=== PATIENT | male | born 1945 | race Caucasian/White ===

== ENCOUNTER 2018-04-30 13:55 | Emergency (ER) | payer MEDICARE, OTHER ==
--- NOTE | 2018-04-30 14:29 | ER Document Report ---
ED Animal Bite - General Chief Complaint: Snake Bite Stated Complaint: FINGER INJURY Time Seen by Provider: 04/30/18 14:17 Mode of Arrival: Ambulatory Information source: Patient Notes: Patient presents to the ED s/p bite to L middle finger. Patient was pulling víctor mili when felt something sharp to the L middle finger. He felt like something "latched onto the finger." He says there's a lot of snakes in the area and is unsure if he was bit by a snake or a spider. Finger began bleeding, bruising and swelling. 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 TRAVEL OUTSIDE OF THE [place] IN LAST 30 DAYS: No - HPI Patient complains to provider of: Bite to L middle finger Location of injury: LUE - Left middle finger Onset: Just prior to arrival Quality of pain: Achy, Fullness Pain Level: 1 Context of attack: "Unprovoked" attack Type of animal: snake vs spider Appearance of animal: Unknown - Related Data Allergies/Adverse Reactions: Tetanus Vaccines and Toxoid Allergy (Verified 04/30/18 14:01) Past Medical History - General Information source: Patient, [facility] Records - Social History Smoking Status: Current Every Day Smoker Cigarette use (# per day): Yes Family History: Reviewed & Not Pertinent Review of Systems - Review of Systems Constitutional: No symptoms reported EENT: No symptoms reported Cardiovascular: No symptoms reported Respiratory: No symptoms reported Gastrointestinal: No symptoms reported Genitourinary: No symptoms reported Musculoskeletal: Joint pain Skin: Change in color Hematologic/Lymphatic: No symptoms reported Neurological/Psychological: No symptoms reported Physical Exam - Vital signs Vitals: Temp Pulse Resp BP Pulse Ox 98.6 F 93 20 144/86 H 93 04/30/18 14:05 04/30/18 14:05 04/30/18 14:05 04/30/18 14:05 04/30/18 14:05 Interpretation: Normal - General General appearance: Appears well, Alert In distress: None - HEENT Head: Normocephalic, Atraumatic Eyes: Normal Conjunctiva: Normal Cornea: Normal Extraocular movements intact: Yes Pupils: PERRL - Respiratory Respiratory status: No respiratory distress Chest status: Nontender Breath sounds: Normal Chest palpation: Normal - Cardiovascular Rhythm: Regular Heart sounds: Normal auscultation - Abdominal Inspection: Normal Distension: No distension - Extremities General upper extremity: Edema Hand: Ecchymosis - L hand middle finger swelling and ecchymosis to the distal tip of the finger. - Neurological Neuro grossly intact: Yes Cranial nerves: Normal - Psychological Associated symptoms: Normal affect, Normal mood - Skin Skin Color: Ecchymosis - Ecchymosis to the L middle finger distal tip of the finger. Edema to the L middle finger. Course - Re-evaluation Re-evalutation: 04/30/18 14:[address] Cardenas in Triage. Labs and imaging ordered. Poison control consulted for possible snake bite. Recommended holding CroFab at this time. If finger starts to become dusky, increasing in swelling, increasing in pain then to administer. 04/30/18 14:46 04/30/18 17:46 Patient's lab obtained and are WNL. On re-evaluation, patient's finger is improving. Erythema, swelling are decreasing. I contacted poison control. They would like the patient to be monitored for 6 hours. They would like measurements to be done on the LUE over the next 6 hours to tract the swelling progression. The paperwork on how to do this was faxed. I reviewed this with the nurse. She will take the measurements as described in the fax. I discussed the plan of care with the patient. He's agreeable with monitoring for 6 hours. 04/30/18 18:36 Care has been given to Dr. Staples. - Vital Signs Vital signs: Temp Pulse Resp BP Pulse Ox 98.6 F 93 15 132/76 H 97 04/30/18 14:05 04/30/18 14:05 04/30/18 16:01 04/30/18 16:00 04/30/18 16:01 - Laboratory Result Diagrams: 04/30/18 14:27 04/30/18 14:27 Laboratory results interpreted by me: 04/30/18 04/30/18 14:27 14:27 RDW 15.0 H BUN 24 H Glucose 111 H Discharge - Discharge Referrals: BJ CARVER MD [Primary Care Provider] - Follow up as needed
--- NOTE | 2018-04-30 14:29 | ER Document Report ---
ED Medical Screen (RME) - General Chief Complaint: Snake Bite Stated Complaint: FINGER INJURY Time Seen by Provider: 04/30/18 14:17 Mode of Arrival: Ambulatory Information source: Patient Notes: 72-year-old man who presents with bite to the left finger. He states he was cleaning the [place] off a fence and was on a ladder and reached up with his left hand and felt the bite. He states it felt like a snake had latched onto the tip of his finger. He felt only one fang entrance. He jerked his arm back immediately and states he never saw a snake. He presents with bleeding and bruising around the tip of the finger as well as pain. He is allergic to tetanus. I did discuss the case with poison control ([phone]) they recommended elevation and get the labs, anastasiia the bite off and to hold on CroFab now but give CroFab if the wound appears increased swelling, increased pain or getting worse. TRAVEL OUTSIDE OF THE [place] IN LAST 30 DAYS: No - Related Data Allergies/Adverse Reactions: Tetanus Vaccines and Toxoid Allergy (Verified 04/30/18 14:01) Physical Exam - Vital signs Vitals: Temp Pulse Resp BP Pulse Ox 98.6 F 93 20 144/86 H 93 04/30/18 14:05 04/30/18 14:05 04/30/18 14:05 04/30/18 14:05 04/30/18 14:05 Course - Vital Signs Vital signs: Temp Pulse Resp BP Pulse Ox 98.6 F 93 20 144/86 H 93 04/30/18 14:05 04/30/18 14:05 04/30/18 14:05 04/30/18 14:05 04/30/18 14:05
--- NOTE | 2018-04-30 14:54 | RADIOLOGY REPORT (SQ) ---
EXAM DESCRIPTION: FINGER LEFT COMPLETED DATE/TIME: 04/30/2018 2:36 pm REASON FOR STUDY: bite COMPARISON: None. NUMBER OF VIEWS: Three views. TECHNIQUE: AP, lateral, and oblique images acquired of the left third finger. LIMITATIONS: None. FINDINGS: MINERALIZATION: Normal. BONES: No acute fracture or dislocation. No worrisome bone lesions. SOFT TISSUES: No soft tissue swelling. No foreign body. OTHER: No other significant finding. IMPRESSION: NO RADIOGRAPHIC EVIDENCE OF ACUTE INJURY. COMMENT: SITE OF TRAUMA/COMPLAINT MARKED/STAMP COMPLETED: YES. TECHNICAL DOCUMENTATION: JOB ID: [id number] [employer]- All Rights Reserved Reading location - IP/workstation name: [email or web address]
[2018-04-30 15:00] LABS: ABSOLUTE BASOPHILS # (AUTO) 0.1 10^3/uL (0.0-0.2); ABSOLUTE EOSINOPHILS # (AUTO) 0.1 10^3/uL (0.0-0.6); ABSOLUTE LYMPHOCYTES (AUTO) 1.9 10^3/uL (0.5-4.7); ABSOLUTE MONOCYTES (AUTO) 0.8 10^3/uL (0.1-1.4); ABSOLUTE NEUT (AUTO) 5.2 10^3/uL (1.7-8.2); BASOPHILS % (AUTO) 0.7 % (0-2); EOSINOPHILS % (AUTO) 1.5 % (0-6); HEMATOCRIT 42.2 % (37.9-51.0); HEMOGLOBIN 14.2 g/dL (13.5-17.0); LYMPHOCYTES % (AUTO) 23.8 % (13-45); MEAN CORPUSCULAR HGB CONC 33.7 g/dL (32.0-36.0); MEAN CORPUSCULAR VOLUME 86 fl (80-97); MONOCYTES % (AUTO) 9.4 % (3-13); PLATELET COUNT 230 10^3/uL (150-450); RED BLOOD COUNT 4.89 10^6/uL (4.35-5.55); SEGMENTED NEUTROPHILS % (AUTO) 64.6 % (42-78); TOTAL CELLS COUNTED % (AUTO) 100 %
[2018-04-30 15:10] LABS: FIBRINOGEN 343 mg/dL (209-497); INTERNATIONAL RATION (INR) 1.02
[2018-04-30 15:11] LABS: PARTIAL THROMBOPLASTIN TIME 29.7 SEC (23.5-35.8)
[2018-04-30 15:33] LABS: APPEARANCE,URINE CLEAR; BILIRUBIN,URINE NEGATIVE (NEGATIVE); COLOR,URINE YELLOW; GLUCOSE, URINE NEGATIVE (NEGATIVE); KETONES,URINE NEGATIVE (NEGATIVE); LEUKOCYTE ESTERASE,URINE NEGATIVE (NEGATIVE); NITRITE,URINE NEGATIVE (NEGATIVE); PROTEIN,URINE NEGATIVE (NEGATIVE); URINE SPECIFIC GRAVITY 1.015; UROBILINOGEN,URINE NEGATIVE mg/dL (<2.0)
[2018-04-30 16:18] LABS: ALANINE AMINOTRANSFERASE 24 U/L (21-72); ALBUMIN 4.3 g/dL (3.5-5.0); ALKALINE PHOSPHATASE 50 U/L (38-126); ANION GAP 10 (5-19); ASPARTATE AMINO TRANSFERASE 32 U/L (17-59); BILIRUBIN,DIRECT 0.4 mg/dL (0.0-0.4); BILIRUBIN,TOTAL 0.4 mg/dL (0.2-1.3); BLOOD UREA NITROGEN 24 mg/dL (7-20); CALCIUM 10.2 mg/dL (8.4-10.2); CARBON DIOXIDE 27 mmol/L (22-30); CHLORIDE 107 mmol/L (98-107); CREATINE KINASE 97 U/L (55-170); GLUCOSE 111 mg/dL (75-110); POTASSIUM 4.3 mmol/L (3.6-5.0); SODIUM 143.8 mmol/L (137-145); TOTAL PROTEIN 7.8 g/dL (6.3-8.2)
[2018-04-30] MEDS ORDERED: OXYCODONE-ACETAMINOPHEN 5-325 MG TABLET PO ONE (17:03)
[2018-04-30 23:12] VITALS: BP 142/78
== END 2018-04-30 23:35 | disposition home or self-care (01) ==
LOC: ER 13:55
DX: S61.253A Open bite of left middle finger without damage to nail, initial encounter (principal); W59.11XA Bitten by nonvenomous snake, initial encounter; Y92.009 Unspecified place in unspecified non-institutional (private) residence as the place of occurrence of the external cause; Z88.7 Allergy status to serum and vaccine
CPT/HCPCS: 99284; 36415; 82550; 85025; 85384; 85362; 85610; 85730; 80053; 81001; 73140; A9270